=== PATIENT | male | born 1930 | race Caucasian/White ===

== ENCOUNTER 2016-10-31 20:25 | Emergency (ER) | payer OTHER, MEDICARE ==
[~2016-10-31] VITALS: Ht 177.8 cm; Wt 68.0 kg
[~2016-10-31 20:25] MED LIST: CELEBREX200 MG PO; TESSALON PERLE100 MG PO
--- NOTE | 2016-10-31 21:42 | ED INFLUENZA/URI COMPLAINT ---
History of Present Illness General Chief Complaint: General Adult Stated Complaint: COUGH AND CONGESTION Source: patient, family, old records Exam Limitations: no limitations Vital Signs & Intake/Output Vital Signs & Intake/Output Vital Signs Date Time Temp Pulse Resp B/P Pulse O2 O2 Flow FiO2 Ox Delivery Rate 10/31 2330 99.5 85 18 114/59 94 Room Air 10/31 2310 99.1 10/31 2230 Room Air 10/31 2204 102.0 10/31 2150 90 10/31 2109 102.1 91 18 164/89 93 Room Air ED Intake and Output 11/01 0000 10/31 1200 Intake Total 0 Output Total Balance 0 Intake, Oral 0 Patient 150 lb Weight Allergies Coded Allergies: NO KNOWN ALLERGIES (12/10/11) Reconcile Medications Albuterol Sulfate (Ventolin Hfa) 90 MCG HFA.AER.AD 2 PUF INH Q4-6 PRN PRN WHEEZING/SHORTNESS OF BREATH Please include spacer #1 Azithromycin 250 MG TABLET 1 DP PO AD lung 2 the first day followed by 1 for days 2-5 Benzonatate (Tessalon Perle) 100 MG CAPSULE 1 CAP PO TID PRN COUGH Benzonatate (Tessalon Perle) 100 MG CAPSULE 1 TAB PO TID COUGH Triage Note: PT TO TRIAGE WITH C/O DRY COUGH AND CONGESTION [id number]. PT DENIES ANY PAIN, DENIES SOB, DENIES URINARY S/S, DENIES N/V/D. TEMP 102.1 IN TRIAGE. HX OF PROSTATE CA. Triage Nurses Notes Reviewed? yes HPI: Patient is an 86-year-old male presents complaining of cough, chest congestion, wheezing, fevers. Cough times one to 2 months. Fevers noticed today. Patient' s family reports that today patient's symptoms appeared worse and they first noticed fevers which prompted them to bring him in for evaluation. Cough is nonproductive. Symptoms are currently mild to moderate. Patient has not taken any medication for his symptoms. Patient did not receive an influenza vaccination this year. Denies chest pain, nausea, vomiting, sick contacts. (BENNIE PEREZ,EDMUNDO) Past History Travel History Traveled to [place] past 21 day No Medical History Any Pertinent Medical History? see below for history Neurological: NONE EENT: NONE Cardiovascular: NONE Respiratory: NONE Gastrointestinal: diverticulitis Hepatic: NONE Renal: NONE Musculoskeletal: NONE Psychiatric: NONE Endocrine: NONE Blood Disorders: NONE Cancer(s): prostate cancer YOUTH WORKER/Reproductive: NONE Surgical History Surgical History: appendectomy, partial colectomy Psychosocial History What is your primary language Scottish Tobacco Use: Never used Family History Hx Contributory? No (EDMUNDO OCONNELL) Review of Systems Review of Systems Constitutional: Reports: chills, fever, weakness. EENTM: Reports: nasal congestion (chronic post nasal drip). Respiratory: Reports: cough, wheezing. Denies: short of breath. Cardiovascular: Denies: chest pain. GI: Denies: diarrhea, nausea, vomiting. Genitourinary: Reports: no symptoms. Musculoskeletal: Reports: no symptoms. Skin: Reports: no symptoms. Neurological/Psychological: Reports: no symptoms. Hematologic/Endocrine: Denies: bruising, bleeding. Immunologic/Allergic: Denies: splenectomy. (EDMUNDO OCONNELL) Physical Exam Physical Exam General Appearance: well developed/nourished, alert, awake Head: atraumatic, mild facial flushing Eyes: Bilateral: normal appearance, PERRL, EOMI. Ears, Nose, Throat: normal ENT inspection, moist mucous membrane, Tympanic normal, pharynx normal Neck: normal inspection, supple, full range of motion Respiratory: mild inspiratory wheezing diffusely. Cardiovascular: regular rate/rhythm Gastrointestinal: soft, non-tender Back: normal inspection, normal range of motion Extremities: normal inspection, normal capillary refill, normal range of motion, no edema Neurologic/Psych: awake, alert, oriented x 3, normal mood/affect Skin: warm/dry Lymphatic: no anterior cervical raisa Core Measures Severe Sepsis Present: No Septic Shock Present: No (EDMUNDO OCONNELL) Progress Differential Diagnosis: influenza, pneumonia, pharyngitis, sinusitis, bronchitis , sepsis Plan of Care: Orders Procedure Date/time Status RAPID VIRAL INFLUENZA A 10/31 2212 Complete BLOOD CULTURE 10/31 2141 Active LACTIC ACID 10/31 2141 Complete COMPREHENSIVE METABOLIC PANEL 10/31 2141 Complete CBC WITHOUT DIFFERENTIAL 10/31 2141 Complete Laboratory Tests 11/01/16 0042: Lactic Acid Cancelled 10/31/168: Anion Gap 11, Estimated GFR > 60, BUN/Creatinine Ratio 20.0, Glucose 105 H, Lactic Acid 0.7, Calcium 9.2, Total Bilirubin 1.0, AST 23, ALT 37, Alkaline Phosphatase 87, Total Protein 6.4, Albumin 4.0, Globulin 2.4, Albumin/Globulin Ratio 1.7, CBC w Diff NO MAN DIFF REQ, RBC 5.03, MCV 90.7, MCH 30.4, RDW 14.0, MPV 7.8, Gran % 73.0, Lymphocytes % 9.4 L, Monocytes % 15.3 H, Eosinophils % 1.8, Basophils % 0.5, Absolute Granulocytes 4.6, Absolute Lymphocytes 0.6 L, Absolute Monocytes 1.0 H, Absolute Eosinophils 0.1, Absolute Basophils 0, PUBS MCHC 33.5 Microbiology 10/31 2236 NASOPHARYN: Influenza Virus A & B Rapid Smear - COMP 10/31 2212 BLOOD: Blood Culture - RES 10/31 2157 BLOOD: Blood Culture - RES 10/31/2016 10:57:09 PM: Patient reports feeling improved after Tylenol and albuterol treatment. Results of labs and chest x-ray discussed with patient and his family. We'll ambulate patient to ensure that he does not desaturate if remained stable likely discharge, which patient and his family are comfortable with. Discussed with and seen by Dr. Ellis. 10/31/2016 11:30:55 PM: Patient ambulated with oxygen saturation 92-93%. No acute respiratory distress. Patient wants to go home. Discussed disposition with patient and his family. Instructed to follow up with Dr. Ochoa this week and return if any worsening. (BENNIE PEREZ,EDMUNDO) Diagnostic Imaging: Viewed by Me: Radiology Read. Discussed w/RAD: Radiology Read. CXR Impression: PATIENT: MARIELY VALENTIN PRESENT AGE : 86 PATIENT ACCOUNT NO: [id number] : [birth year] LOCATION: [facility] ORDERING PHYSICIAN: EDMUNDO PEREZ SERVICE DATE: 10/31/16 EXAM TYPE: RAD - XRY-CHEST XRAY, PA AND LATERAL EXAMINATION: XR CHEST CLINICAL INFORMATION: Cough , fevers. Evaluate for pneumonia. COMPARISON: Multiple priors, most recent chest radiographs dated 10/11/2014. TECHNIQUE: PA and lateral views of the chest were obtained. FINDINGS: Mild bibasilar atelectasis versus linear scarring is unchanged. Prominence of the right cl is redemonstrated, which could represent unchanged prominent vasculature. No airspace consolidation. No pleural effusion or pneumothorax. No enlargement of the cardiomediastinal silhouette. Mild degenerative changes of the visualized thoracic spine. IMPRESSION: Bibasilar atelectasis. DICTATED BY: ANTIONE JOHNSTON MD DATE/TIME DICTATED:10/31/162230 CLAIMS INVESTIGATOR:ENZO DATE/TIME TRANSCRIBED:10/31/162230 CONFIDENTIAL, DO NOT COPY WITHOUT APPROPRIATE AUTHORIZATION. <Electronically signed in Other Vendor System> SIGNED BY: ANTIONE JOHNSTON MD 10/31/162246 Initial ED EKG: none (EDMUNDO OCONNELL) Departure Departure Disposition: HOME OR SELF CARE Condition: Stable Clinical Impression Primary Impression: Bronchitis Referrals: ASHISH BARBOSA,MARIELENA [place] (PCP/Family) Additional Instructions: Drink plenty of fluids and rest. Take Tylenol as directed for fevers. Follow- up with Dr. Ochoa this week for further evaluation, call tomorrow morning for appointment. Return to emergency department breathing worsening, unable say hydrated, or worsening of symptoms. Departure Forms: Customer Survey General Discharge Information Prescriptions: Current Visit Scripts Albuterol Sulfate (Ventolin Hfa) 2 PUF INH Q4-6 PRN PRN WHEEZING/SHORTNESS OF BREATH #1 INHAL Please include spacer #1 Azithromycin 1 DP PO AD #6 TAB 2 the first day followed by 1 for days 2-5 Benzonatate (Tessalon Perle) 1 CAP PO TID PRN COUGH #21 CAP (EDMUNDO OCONNELL) PA/FINANCIAL UNDERWRITER Co-Sign Statement Statement: ED Attending supervision documentation- [X] I saw and evaluated the patient. I have also reviewed all the pertinent lab results and diagnostic results. I agree with the findings and the plan of care as documented in the PA's/FINANCIAL UNDERWRITER's documentation. [] I have reviewed the ED Record and agree with the PA's/FINANCIAL UNDERWRITER's documentation. [] Additions or exceptions (if any) to the PAs/FINANCIAL UNDERWRITER's note and plan are summarized below: [] (GELY ELLIS DO
[2016-10-31 22:29] LABS: ABSOLUTE BASOPHIL COUNT 0 /CUMM (0.0-0.2); ABSOLUTE EOSINOPHIL COUNT 0.1 /CUMM (0.0-0.7); ABSOLUTE GRANULOCYTE CT 4.6 /CUMM (1.4-6.5); ABSOLUTE LYMPH COUNT 0.6 /CUMM (1.2-3.4); BASOPHIL % 0.5 % (0.0-2.0); EOSINOPHIL % 1.8 % (0-5); HEMATOCRIT 45.6 % (42-52); MEAN CORPUSCULAR HGB 30.4 PG (27.0-31.0); MEAN CORPUSCULAR HGB CONC 33.5 G/DL (33.0-37.0); MEAN CORPUSCULAR VOLUME 90.7 FL (80.0-94.0); MEAN PLATELET VOLUME 7.8 FL (7.4-10.4); PLATELET COUNT 167 /CUMM (130-400); RED BLOOD CELL CT 5.03 /CUMM (4.70-6.10); WHITE BLOOD CELL COUNT 6.3 /CUMM (4.8-10.8)
--- NOTE | 2016-10-31 22:47 | RADIOLOGY REPORT ---
EXAMINATION: XR CHEST CLINICAL INFORMATION: Cough, fevers. Evaluate for pneumonia. COMPARISON: Multiple priors, most recent chest radiographs dated 10/11/2014. TECHNIQUE: PA and lateral views of the chest were obtained. FINDINGS: Mild bibasilar atelectasis versus linear scarring is unchanged. Prominence of the right cl is redemonstrated, which could represent unchanged prominent vasculature. No airspace consolidation. No pleural effusion or pneumothorax. No enlargement of the cardiomediastinal silhouette. Mild degenerative changes of the visualized thoracic spine. IMPRESSION: Bibasilar atelectasis.
[2016-10-31] MEDS ORDERED: TESSALON PERLE100 M1 PO (23:29)
[2016-10-31] MEDS ORDERED: VENTOLIN HFA18 GM INH (23:29)
[2016-10-31] MEDS ORDERED: AZITHROMYCIN250 M1 PO (23:29)
[2016-10-31 23:30] VITALS: BP 114/59
== END 2016-10-31 23:39 ==
LOC: ERH 20:25
PROVIDERS: Physician Assistant
DX: J40 Bronchitis, not specified as acute or chronic (principal)
CPT/HCPCS: 1263; 87040; 87804; 87804-59